=== PATIENT | female | born 1955 | race African-American/Black ===

== ENCOUNTER 2017-11-01 01:41 | Emergency (ER) | payer OTHER ==
[~2017-11-01] VITALS: Ht 154.9 cm; Wt 59.0 kg
[2017-11-01] MEDS ORDERED: ACETAMINOPHEN WITH CODEINE 300/30MG TABLET PO ONE (08:30)
[2017-11-01 10:21] VITALS: BP 114/77
== END 2017-11-01 10:34 | disposition home or self-care (01) ==
LOC: ER 01:41
DX: K04.7 Periapical abscess without sinus (principal); R68.84 Jaw pain; R03.0 Elevated blood-pressure reading, without diagnosis of hypertension; F17.210 Nicotine dependence, cigarettes, uncomplicated
CPT/HCPCS: 99283

== ENCOUNTER 2025-02-12 05:35 | Emergency (ER) | payer MEDICARE, OTHER ==
[~2025-02-12] VITALS: Ht 154.9 cm; Wt 59.0 kg
[2025-02-12 05:41] VITALS: O2SAT 99
[2025-02-12 06:25] LABS: CHLORIDE 105 mEq/L (98-107); POTASSIUM 4.1 mEq/L (3.5-5.1); SODIUM 142 mEq/L (136-145)
[2025-02-12 06:26] LABS: CALCIUM 9.9 mg/dL (8.7-10.4); CARBON DIOXIDE 30 mEq/L (21-32)
[2025-02-12 06:31] LABS: CREATININE 0.8 mg/dL (0.6-1.0); GLUCOSE 88 mg/dL (70-105); UREA NITROGEN BLOOD 12 mg/dL (9-23)
[2025-02-12 06:33] LABS: CREATINE KINASE 221 IU/L (34-145)
[2025-02-12] MEDS: ACETAMINOPHEN 325MG TABLET PO ONE (06:44)
[2025-02-12] MEDS ORDERED: IBUP-2029 MT (07:57)
[2025-02-12 08:39] VITALS: BP 160/97; PULSE 58; RESP 15; TEMP 36.7; O2SAT 99
== END 2025-02-12 08:41 | disposition home or self-care (01) ==
LOC: ER 05:35
DX: M62.838 Other muscle spasm (principal); M79.604 Pain in right leg; M79.605 Pain in left leg
CPT/HCPCS: 36415; 80048; 82550; 93970; 99284